=== PATIENT | male | born 1930 | race Caucasian/White ===

== ENCOUNTER 2018-02-19 13:12 | Emergency (ER) | payer MEDICARE ==
[~2018-02-19] VITALS: Ht 180.3 cm; Wt 85.0 kg
[~2018-02-19 13:12] MED LIST: ACET325 PO; AVOD0.5C PO; BISA10SU8 PR; CARV6.252 PO; CIPR250T2 PO; CLOP75 PO; ENAL10TA7 PO; LORTA5 PO; MAGN400 PO; MILK2400 PO; MULT-65 PO; SERT50 PO; VITA400C58 PO; VITA500S3 PO; VITA500T83 PO; Z.0.COMMODE-3:1; Z.0.CPM; Z.0.WALKERFRONT
[2018-02-19 13:34] VITALS: BP 161/70; PULSE 60; RESP 18; TEMP 98.1; O2SAT 98
[2018-02-19] MEDS ORDERED: SERT-132 PO (13:34)
[2018-02-19] MEDS ORDERED: TRIA1CAP6 PO (13:34)
[2018-02-19] MEDS ORDERED: LORA0.5T PO (13:34)
[2018-02-19] MEDS ORDERED: LISI10TA3 PO (13:34)
--- NOTE | 2018-02-19 13:37 | PD ---
HPI Chief Complaint: Bleeding Time Seen by Provider: 13:29 Travel History International Travel<30 days: No Contact w/Intl Traveler<30days: No Traveled to known affect area: No History of Present Illness HPI 87-year-old male patient from [facility], presents to the ER today brought in by EMS because staff saw blood in his diaper and on his penis today. He admits he has been having some lower abdominal discomfort, and has burning on urination. He denies any fevers, vomiting, chest discomfort, or any other issues. He denies any trauma to the area. Modifying Factors: None Associated Signs & Symptoms: Blood in the urine, lower abdominal discomfort and dysuria Risk Factors: Elderly PFSH Past Medical History Heart Rhythm Problems: No Cancer: Yes (SKIN) Cardiac Catheterization: No Cardiovascular Problems: Yes (CAROTID ARTERIAL SURGERY, STENT X 3) High Cholesterol: Yes Congestive Heart Failure: No Diabetes: No Endocrine: No Genitourinary: Yes (INCONTINENT) Hepatitis: No Hiatal Hernia: No Hypertension: Yes Immune Disorder: No Musculoskeletal: Yes (ARTHRITIS) Neurologic: No Psychiatric: Yes (DEPRESSION) Respiratory: No Thyroid Disease: No Past Surgical History Body Medical Devices: CARDIAC STENTS Cardiac Surgery: Yes (LT NECK CAROTID, STENTS X 3) Coronary Artery Bypass Graft: No Other Surgery: Yes Family History Family Myocardial Infarction: Yes (FATHER HAD [place] AT 80) Social History Alcohol Use: No Tobacco Use: No Substance Use: No Allergies-Medications (Allergen,Severity, Reaction): Coded Allergies: simvastatin (Verified Allergy, Intermediate, UNKNOWN, 02/19/18) Reported Meds & Prescriptions Reported Meds & Active Scripts Active Reported Lorazepam 0.5 Mg Tab 0.5 Mg PO DAILY PRN Dyrenium (Triamterene) 50 Mg Cap 25 Mg PO DAILY Sertraline (Sertraline HCl) 50 Mg Tab 50 Mg PO DAILY Lisinopril 10 Mg Tab 10 Mg PO DAILY Review of Systems Except as stated in HPI: all other systems reviewed are Neg Physical Exam Narrative GENERAL: Well-developed elderly male patient currently and mild distress. Awake , oriented 3. SKIN: Focused skin assessment warm/dry. HEAD: Atraumatic. Normocephalic. EYES: Pupils equal and round. No scleral icterus. No injection or drainage. ENT: No nasal bleeding or discharge. Mucous membranes pink and moist. NECK: Trachea midline. No JVD. CARDIOVASCULAR: Regular rate and rhythm. No murmur appreciated. RESPIRATORY: No accessory muscle use. Clear to auscultation. Breath sounds equal bilaterally. GASTROINTESTINAL: Abdomen soft, mild suprapubic tenderness without guarding or rebound, nondistended. Hepatic and splenic margins not palpable. MUSCULOSKELETAL: No obvious deformities. No clubbing. No cyanosis. No edema. NEUROLOGICAL: Awake and alert. No obvious cranial nerve deficits. Motor grossly within normal limits. Stuttering speech. PSYCHIATRIC: Appropriate mood and affect; insight and judgment normal. Data Data Last Documented VS Vital Signs Date Time Temp Pulse Resp B/P (MAP) Pulse Ox O2 Delivery O2 Flow Rate FiO2 02/19/18 13:34 98.1 60 18 161/70 (100) 98 Room Air Orders Orders Electrocardiogram (02/19/18 13:29) Complete Blood Count With Diff (02/19/18 13:29) Basic Metabolic Panel (Bmp) (02/19/18 13:29) Prothrombin Time / Inr (Pt) (02/19/18 13:29) Act Partial Throm Time (Ptt) (02/19/18 13:29) Blood Culture (02/19/18 13:29) Urinalysis - C+S If Indicated (02/19/18 13:29) Urinary Catheter Insert/Apply (02/19/18 13:29) Urine Culture (02/19/18 14:00) Piperacil-Tazo 4.5 Gm Premix (Zosyn 4.5 (02/19/18 15:49) Labs Laboratory Tests Test 02/19/18 14:00 02/19/18 14:12 Urine Color YELLOW Urine Turbidity HAZY Urine pH 8.0 Urine Specific [place] 1.016 Urine Protein 30 mg/dL Urine Glucose (UA) NEG mg/dL Urine Ketones NEG mg/dL Urine Occult Blood MOD Urine Nitrite POS Urine Bilirubin NEG Urine Urobilinogen LESS THAN 2.0 MG/DL Urine Leukocyte Esterase LARGE Urine RBC /hpf Urine WBC /hpf Urine Bacteria FEW /hpf Urine Hyaline Casts 4 /lpf Microscopic Urinalysis Comment CULTURE INDICATED White Blood Count 9.4 TH/MM3 Red Blood Count 4.29 MIL/MM3 Hemoglobin 13.0 GM/DL Hematocrit 39.1 % Mean Corpuscular Volume 91.3 FL Mean Corpuscular Hemoglobin 30.4 PG Mean Corpuscular Hemoglobin Concent 33.3 % Red Cell Distribution Width 13.7 % Platelet Count 160 TH/MM3 Mean Platelet Volume 8.2 FL Neutrophils (%) (Auto) 76.5 % Lymphocytes (%) (Auto) 12.9 % Monocytes (%) (Auto) 7.2 % Eosinophils (%) (Auto) 3.0 % Basophils (%) (Auto) 0.4 % Neutrophils # (Auto) 7.2 TH/MM3 Lymphocytes # (Auto) 1.2 TH/MM3 Monocytes # (Auto) 0.7 TH/MM3 Eosinophils # (Auto) 0.3 TH/MM3 Basophils # (Auto) 0.0 TH/MM3 CBC Comment DIFF FINAL Differential Comment Prothrombin Time 10.3 SEC Prothromb Time International Ratio 1.0 RATIO Activated Partial Thromboplast Time 26.8 SEC Blood Urea Nitrogen 28 MG/DL Creatinine 1.45 MG/DL Random Glucose 96 MG/DL Calcium Level 9.6 MG/DL Sodium Level 141 MEQ/L Potassium Level 5.3 MEQ/L Chloride Level 110 MEQ/L Carbon Dioxide Level 24.3 MEQ/L Anion Gap 7 MEQ/L Estimat Glomerular Filtration Rate 46 ML/MIN [facility] Medical Decision Making Medical Screen Exam Complete: Yes Emergency Medical Condition: Yes Medical Record Reviewed: Yes Interpretation(s) Laboratory Tests Test 02/19/18 14:00 02/19/18 14:12 Urine Turbidity HAZY (CLEAR) Urine Protein 30 mg/dL (NEG-TRACE) Urine Occult Blood MOD (NEG) Urine Nitrite POS (NEG) Urine Leukocyte Esterase LARGE (NEG) Urine Bacteria FEW /hpf (NONE) Red Blood Count 4.29 MIL/MM3 (4.50-5.90) Neutrophils (%) (Auto) 76.5 % (16.0-70.0) Blood Urea Nitrogen 28 MG/DL (7-18) Creatinine 1.45 MG/DL (0.60-1.30) Potassium Level 5.3 MEQ/L (3.5-5.1) Chloride Level 110 MEQ/L (98-107) Estimat Glomerular Filtration Rate 46 ML/MIN (>89) Differential Diagnosis Hematuria: UTI versus hemorrhagic cystitis versus coagulopathy versus trauma Narrative Course Lab work shows UTI which is likely causing his hematuria. IV antibiotics were initiated after cultures were drawn. Vital signs are stable in the ER. At this point, I have discussed findings with him and his and I have offered to admit him as an observation versus have him released with p.o. antibiotics and follow-up to primary care doctor. Patient and his state that they do not want him to stay and wanted to come back to the facility. We will give him p.o. antibiotics. He should follow-up closely with primary care doctor. Return for any worsening of bleeding, or new issues as needed. The plan has been discussed with him and he states understanding. Diagnosis Primary Impression: UTI (urinary tract infection) Med/Other Pt SpecificInfo: Prescription(s) given Scripts Sulfamethoxazole-Trimethoprim (Bactrim DS) 800-160 Mg Tab 1 TAB PO BID for Infection, #14 TAB 0 Refills Prov: Edna Omer MD 02/19/18 Disposition: 01 DISCHARGE HOME Condition: Stable Edna Omer MD Feb 19, 2018 13:37
[2018-02-19 15:10] LABS: AUTOMATED NEUTROPHIL # 7.2 TH/MM3 (1.8-7.7); BASOPHIL % 0.4 % (0.0-2.0); EOSINOPHIL # 0.3 TH/MM3 (0-0.4); HEMATOCRIT 39.1 % (39.0-51.0); LYMPH % 12.9 % (9.0-44.0); LYMPHOCYTE # 1.2 TH/MM3 (1.0-4.8); MEAN CELL VOLUME 91.3 FL (80.0-100.0); MEAN CORPUSCULAR HEMOGLOBIN 30.4 PG (27.0-34.0); MEAN CORPUSCULAR HGB CONC 33.3 % (32.0-36.0); MEAN PLATELET VOLUME 8.2 FL (7.0-11.0); MONO % 7.2 % (0.0-8.0); MONOCYTE # 0.7 TH/MM3 (0-0.9); NEUT % 76.5 % (16.0-70.0); PLATELET COUNT 160 TH/MM3 (150-450); RED BLOOD COUNT 4.29 MIL/MM3 (4.50-5.90); RED CELL DISTRIBUTION WIDTH 13.7 % (11.6-17.2); WHITE BLOOD COUNT 9.4 TH/MM3 (4.0-11.0)
[2018-02-19 15:20] LABS: BACTERIA, URINE FEW /hpf; BILIRUBIN, URINE NEG (NEG); BLOOD, URINE MOD (NEG); GLUCOSE,URINE NEG (NEG); HYALINE CAST, URINE 4 /lpf (RARE); KETONE, URINE NEG (NEG); NITRITE,URINE POS (NEG); URINE COLOR YELLOW (YELLW/STRAW); URINE LEUKOCYTE ESTERASE LARGE (NEG)
[2018-02-19 15:26] LABS: PROTHROMBIN TIME - PATIENT 10.3 SEC (9.8-11.6)
[2018-02-19 15:41] LABS: BICARBONATE 24.3 MEQ/L (21.0-32.0); CALCIUM 9.6 MG/DL (8.5-10.1); CREATININE 1.45 MG/DL (0.60-1.30)
[2018-02-19] MEDS ORDERED: PIPERACIL-TAZO 4.5 GM PREMIX 100 ML IV STA (15:49)
[2018-02-19] MEDS ORDERED: BACT800T5 PO (16:10)
[2018-02-19 17:00] VITALS: BP 132/76; TEMP 97.8
--- NOTE | 2018-02-21 00:30 | EKG ---
Date Performed: 02/19/2018 Time Performed: 13:56:32 PTAGE: 87 years EKG: Sinus rhythm ELECTRICAL INTERFERENCES INTRAVENTRICULAR CONDUCTION DELAY POSSIBLE RIGHT VENTRICULAR HYPERTROPHY AB NORMAL ECG PREVIOUS TRACING : 01/05/2014 06.15 DOCTOR: Fay Jean Interpretating Date/Time 02/21/2018 00:16:26
== END 2018-02-19 17:00 | disposition home or self-care (01) ==
LOC: NEPE 13:12
DX: N39.0 Urinary tract infection, site not specified (principal); B96.4 Proteus (mirabilis) (morganii) as the cause of diseases classified elsewhere; I51.7 Cardiomegaly; R94.31 Abnormal electrocardiogram [ECG] [EKG]; E78.00 Pure hypercholesterolemia, unspecified; I10 Essential (primary) hypertension; M19.90 Unspecified osteoarthritis, unspecified site; F32.9 Major depressive disorder, single episode, unspecified; Z79.899 Other long term (current) drug therapy
CPT/HCPCS: 51702; 80048; 81001; 85025; 85610; 85730; 87040; 87077; 87086; 87186; 93005; 96365; 99284; J2543

== ENCOUNTER 2018-02-22 06:04 | Observation (INO) | payer MEDICARE ==
[~2018-02-22] VITALS: Ht 177.8 cm; Wt 95.9 kg
[2018-02-22] VITALS (10 sets, daily range): BP systolic 112–172; BP diastolic 56–72; PULSE 50–88; RESP 16–20; TEMP 97.8–98.8; O2SAT 94–100
[~2018-02-22 06:04] MED LIST changes: -ACET325 PO; -AVOD0.5C PO; +BACT800T5 PO; -BISA10SU8 PR; -CARV6.252 PO; -CIPR250T2 PO; -CLOP75 PO; -ENAL10TA7 PO; +LISI10TA3 PO; +LORA0.5T PO; -LORTA5 PO; -MAGN400 PO; -MILK2400 PO; -MULT-65 PO; +SERT-132 PO; -SERT50 PO; +TRIA1CAP6 PO; -VITA400C58 PO; -VITA500S3 PO; -VITA500T83 PO; -Z.0.COMMODE-3:1; -Z.0.CPM; -Z.0.WALKERFRONT
[2018-02-22] MEDS ORDERED: SODIUM CHLOR 0.9% 1000 ML INJ 1,000 ML IV ONE (06:40)
--- NOTE | 2018-02-22 06:44 | PD ---
HPI Chief Complaint: Altered Mental Status Time Seen by Provider: 06:40 Travel History International Travel<30 days: No Contact w/Intl Traveler<30days: No Traveled to known affect area: No History of Present Illness HPI The patient is an 87 year old male who presents to the [facility] emergency department with a history of generalized weakness that reportedly began last night at around 2100 according to ambulance services. The patient had increased confusion this morning upon awakening, thus his called 911. The patient's is not available for further history at this time. The patient was noted by ambulance services upon their arrival this morning to be confused, having difficulty answering questions. The patient had no obvious focal neurologic findings noted prior to arrival. The patient in route to this facility had improvement of his mentation and on evaluation by the nursing staff for intake was noted to be alert and oriented 3. The patient was noted to have a droop of his left eyelid, but with an equal smile. It is unknown whether the patient has a history of left eyelid ptosis. The patient denies being on any blood thinners. He is unsure whether he takes any aspirin. The patient reports that he was recently in the emergency department and diagnosed with a urinary tract infection. Ambulance services reported that the family reported that the patient was seen in the emergency department on Tuesday and diagnosed with a urinary tract infection. The patient has been on antibiotics since then for approximately 2-1/2 days. On my arrival to the room, the patient is noted to have waxing and waning difficulties with finding words and at times when answering questions would say random words not pertaining to the subject. PFSH Past Medical History Narrative Medical The patient's past medical history is significant for carotid occlusion with carotid arterial surgery, history of hyperlipidemia, hypertension, arthritis, depression Heart Rhythm Problems: No Cancer: Yes (SKIN) Cardiac Catheterization: No Cardiovascular Problems: Yes (CAROTID ARTERIAL SURGERY, STENT X 3) High Cholesterol: Yes Congestive Heart Failure: No Diabetes: No Endocrine: No Genitourinary: Yes (INCONTINENT) Hepatitis: No Hiatal Hernia: No Hypertension: Yes Immune Disorder: No Musculoskeletal: Yes (ARTHRITIS) Neurologic: No Psychiatric: Yes (DEPRESSION) Respiratory: No Thyroid Disease: No Past Surgical History Narrative Surgical The patient's past surgical history is significant for cardiac catheterization with stent placement, carotid artery surgery. Body Medical Devices: CARDIAC STENTS Cardiac Surgery: Yes (LT NECK CAROTID, STENTS X 3) Coronary Artery Bypass Graft: No Other Surgery: Yes Family History Family Myocardial Infarction: Yes (FATHER HAD [place] AT 80) Social History Alcohol Use: No Tobacco Use: No Substance Use: No Allergies-Medications (Allergen,Severity, Reaction): Coded Allergies: simvastatin (Verified Allergy, Intermediate, UNKNOWN, 02/19/18) Reported Meds & Prescriptions Reported Meds & Active Scripts Active Bactrim DS (Sulfamethoxazole-Trimethoprim) 800-160 Mg Tab 1 Tab PO BID Reported Lorazepam 0.5 Mg Tab 0.5 Mg PO DAILY PRN Dyrenium (Triamterene) 50 Mg Cap 25 Mg PO DAILY Sertraline (Sertraline HCl) 50 Mg Tab 50 Mg PO DAILY Lisinopril 10 Mg Tab 10 Mg PO DAILY Review of Systems Except as stated in HPI: all other systems reviewed are Neg General / Constitutional: No: Fever Eyes: No: Visual changes HENT: No: Headaches Cardiovascular: No: Chest Pain or Discomfort Respiratory: No: Shortness of Breath Gastrointestinal: No: Abdominal Pain Genitourinary: No: Dysuria Musculoskeletal: No: Pain Skin: No Rash Neurologic: Positive: Change in Mentation, Other (Left eyelid ptosis, expressive aphasia), No: Weakness, Focal Abnormalities, Slurred Speech, Sensory Disturbance Psychiatric: No: Depression Endocrine: No: Polydipsia Hematologic/Lymphatic: No: Easy Bruising Physical Exam Narrative General: The patient is a well-developed well-nourished male in no acute distress. Head and Neck exam: Head is normocephalic atraumatic. Eyes: EOMI, pupils are equal round and reactive to light. Nose: Midline septum with pink mucous membranes Mouth: Dentition unremarkable. Moist mucus membranes. Posterior oropharynx is not erythematous. No tonsillar hypertrophy. Uvula midline. Airway patent. Neck: No palpable lymphadenopathy. No nuchal rigidity. No thyromegaly. Cardiovascular: Regular rate and rhythm without murmurs, gallops, or rubs. No pulse deficit to the extremities on simultaneous auscultation and palpation of his radial artery. Lungs: Clear to auscultation bilaterally. No wheezes, rhonchi, or rales. Abdomen: Soft, without tenderness to palpation in all 4 quadrants of the abdomen. No guarding, rebound, or rigidity. Normal bowel sounds are audible. No tenderness on palpation of McBurney's point. Extremities: No clubbing or cyanosis. The patient has 1+ pitting edema bilateral lower extremities. 2+ pulses in all 4 extremities. Back: No costovertebral angle tenderness to palpation. Neurologic Exam: The patient has equal facial movement on smiling, however he is noted to have a left eyelid ptosis which I am unsure of whether he has a history of. The patient has strength at 5/5 in all 4 extremities, intact sensation over all dermatomes. The patient has waxing and waning ability to speak. When answering questions at times he is able to answer the question that is asked, at other times he is confused and is slow to speak. When he does speak he will say random words instead of what he seems to intend. The patient has difficulty naming various objects around the room. No loss of visual zuleta. Skin Exam: No rash noted. Intact skin that is warm and dry. Data Data Last Documented VS Vital Signs Date Time Temp Pulse Resp B/P (MAP) Pulse Ox O2 Delivery O2 Flow Rate FiO2 02/22/18 07:14 61 16 158/72 (100) 100 Nasal Cannula 2.00 02/22/18 06:10 98.8 Orders Orders Diet Npo (02/22/18 Breakfast) Activity Bed Rest (02/22/18 ) Electrocardiogram (02/22/18 ) I-Stat Profile (02/22/18 06:40) Prothrombin Time / Inr (Pt) (02/22/18 06:40) Act Partial Throm Time (Ptt) (02/22/18 06:40) Complete Blood Count With Diff (02/22/18 06:40) Fibrinogen (02/22/18 06:40) Creatine Kinase (Cpk) (02/22/18 06:40) Troponin I (02/22/18 06:40) Ua Includes Microscopic (02/22/18 06:40) Drug Screen, Random Urine (02/22/18 06:40) Type And Screen (02/22/18 06:40) Ct Brain W/O Iv Contrast(Rout) (02/22/18 ) Chest, Single Ap (02/22/18 ) Cta Brain W Iv Contrast W 3d (02/22/18 06:40) Cta Neck W Iv Contrast W 3d (02/22/18 06:40) Consult Neurology (02/22/18 ) Blood Glucose (02/22/18 06:40) Ecg Monitoring (02/22/18 06:40) Neuro Checks Q2HX12,Q4H (02/22/18 06:40) Nursing Bedside Swallow Assess .ONCE (02/22/18 06:40) Iv Access Insert/Monitor (02/22/18 06:40) NPO (02/22/18 06:40) Oximetry (02/22/18 06:40) Resp Oxygen Nc Stroke (02/22/18 ) Sodium Chlor 0.9% 1000 Ml Inj (Ns 1000 M (02/22/18 06:40) Cath For Specimen (02/22/18 06:40) (Hub Use Only)Inp Phy Cons/Ref (02/22/18 ) Mra Carotids W Contrast (02/22/18 ) Cath For Specimen (02/22/18 07:18) Mri Brain W/O Contrast (02/22/18 ) Ceftriaxone Inj (Rocephin Inj) (02/22/18 08:15) Blood Culture (02/22/18 08:14) Mra Brain W/O Contrast (Cow) (02/22/18 ) Labs Laboratory Tests Test 02/22/18 06:40 02/22/18 07:20 02/22/18 07:30 White Blood Count 9.0 TH/MM3 Red Blood Count 3.95 MIL/MM3 Hemoglobin 12.0 GM/DL Bedside Hemoglobin 10.9 G/DL Hematocrit 35.7 % Bedside Hematocrit 32.0 % Mean Corpuscular Volume 90.4 FL Mean Corpuscular Hemoglobin 30.4 PG Mean Corpuscular Hemoglobin Concent 33.6 % Red Cell Distribution Width 13.2 % Platelet Count 178 TH/MM3 Mean Platelet Volume 9.4 FL Neutrophils (%) (Auto) 75.9 % Lymphocytes (%) (Auto) 11.9 % Monocytes (%) (Auto) 7.1 % Eosinophils (%) (Auto) 4.6 % Basophils (%) (Auto) 0.5 % Neutrophils # (Auto) 6.8 TH/MM3 Lymphocytes # (Auto) 1.1 TH/MM3 Monocytes # (Auto) 0.6 TH/MM3 Eosinophils # (Auto) 0.4 TH/MM3 Basophils # (Auto) 0.0 TH/MM3 CBC Comment DIFF FINAL Differential Comment Bedside Sodium 137 MMOL/L Bedside Potassium 4.0 MMOL/L Bedside Chloride 107 MMOL/L Bedside Blood Urea Nitrogen 37 MG/DL Bedside Creatinine 2.1 MG/DL Bedside Glucose 87 MG/DL Total Creatine Kinase 82 U/L Troponin I LESS THAN 0.02 NG/ML Prothrombin Time 9.8 SEC Prothromb Time International Ratio 1.0 RATIO Activated Partial Thromboplast Time 25.2 SEC Fibrinogen 582 mg/dL Urine Color LIGHT-YELLOW Urine Turbidity CLEAR Urine pH 6.0 Urine Specific [place] 1.014 Urine Protein TRACE mg/dL Urine Glucose (UA) NEG mg/dL Urine Ketones NEG mg/dL Urine Occult Blood TRACE Urine Nitrite NEG Urine Bilirubin NEG Urine Urobilinogen LESS THAN 2.0 MG/DL Urine Leukocyte Esterase LARGE Urine RBC 4 /hpf Urine WBC 41 /hpf Urine Bacteria RARE /hpf Urine Hyaline Casts 1 /lpf Urine Mucus FEW /lpf Urine Opiates Screen NEG Urine Barbiturates Screen NEG Urine Amphetamines Screen NEG Urine Benzodiazepines Screen NEG Urine Cocaine Screen NEG Urine Cannabinoids Screen NEG MDM Medical Decision Making Medical Screen Exam Complete: Yes Emergency Medical Condition: Yes Medical Record Reviewed: Yes Differential Diagnosis Ischemic stroke, versus hemorrhagic stroke, versus intracranial mass, versus encephalopathy, versus delirium Narrative Course During the course of the patient's emergency department visit, the patient's history, examination, and differential diagnosis were reviewed with the patient. The patient was placed on a cardiac technologist with oximetry and frequent blood pressure monitoring. The patient had IV access obtained and blood work sent for analysis. The patient had a EKG on arrival that shows a sinus bradycardia, heart rate of 59, QRS duration is 130 ms, QTC [address] segment elevation is noted. T waves are inverted in lead III, V1. A stroke alert was called on this patient has no other family members are available at the bedside and the patient appears to have an expressive aphasia. The stroke alert was called at 6:38 AM. I spoke to Dr. Hathaway the neurologist quality control analyst at 6: 42 AM. She recommends further evaluation and discussion with the patient's family as the patient's symptoms may have been present even last night given the reported weakness since 9 PM last night. The patient was initially provided normal saline at 70 mL/h. The patient's head of the bed was placed flat. The patient's initial systolic blood pressure was in the 170s. The patient's laboratory studies were reviewed and remarkable for a white count of 9, hemoglobin 12, platelets 178 with 75.9 neutrophils, 4.6 eosinophils, i- STAT with creatinine revealed a BUN of 37, creatinine 2.1, glucose 87, Radiology studies were reviewed and remarkable for a CT scan of the brain that showed cerebral atrophy, no acute intracranial abnormality. A call was then placed out again to the neurologist, Dr. Hathaway to update her regarding the negative CT brain noncontrast. Unfortunately, the patient's family is not present to provide additional history and due to the vagueness of the patient's symptoms that have were reportedly been waxing and waning sinus last night, Dr. Hathaway agreed that the patient does not appear to meet criteria for TPA administration. The patient will be given aspirin. The patient's coagulation profile, urinalysis by in and out catheterization, and MRIs requested by the neurologist are pending at the conclusion of my shift. The patient's case was checked out to Dr. Hernandez for final evaluation and disposition. I anticipate that the patient will be admitted to the hospital. Critical Care Narrative Aggregate critical care time was 33 minutes. Time to perform other separately billable procedures was not included in the critical care time. My time did not include minutes spent treating any other patients simultaneously or on activities that did not directly contribute to the patient's treatment. The services I provided to this patient were to treat and/or prevent clinically significant deterioration that could result in: Progression of neurologic disability, versus sepsis, versus respiratory failure I provided critical care services requiring my management, as noted below: Chart data review, documentation time, medication orders and management, vital sign assessments/reviewing monitor data, ordering and reviewing lab tests, ordering and interpreting/reviewing x-rays and diagnostic studies, care of the patient and discussion of the patient with the admitting physicians. Physician Communication Physician Communication The patient's case including history, pertinent physical examination findings, and laboratory studies were discussed with Dr. Hathaway and Dr. Duvall. Diagnosis Primary Impression: Expressive aphasia Additional Impression: Altered mental status Qualified Codes: R41.0 - Disorientation, unspecified Admitting Information Admitting Physician Requests: Admit Mikala Christensen MD Feb 22, 2018 06:44
--- NOTE | 2018-02-22 06:55 | RADRPT ---
EXAM DATE/TIME: 02/22/2018 06:46 [facility] COMPARISON: No previous studies available for comparison. INDICATIONS : Stroke alert, left side facial droop and expressive aphasia. RADIATION DOSE: 38.55 CTDIvol (mGy) This report was called by Jessika to Fermin at 6: 52am MEDICAL HISTORY : Non-responsive. SURGICAL HISTORY : Non-responsive. ENCOUNTER: Initial ACUITY: 1 day PAIN SCALE: Non-responsive LOCATION: cranial TECHNIQUE: Multiple contiguous axial images were obtained of the head. Using automated exposure control and adj ustment of the mA and/or kV according to patient size, radiation dose was kept as low as reasonably a chievable to obtain optimal diagnostic quality images. DICOM format image data is available electro nically for review and comparison. FINDINGS: CEREBRUM: The ventricles are prominent consistent with atrophy. No evidence of midline shift, mass lesion, hem orrhage or acute infarction. No extra-axial fluid collections are seen. POSTERIOR FOSSA: The cerebellum and brainstem are intact. The 4th ventricle is midline. The cerebellopontine angle i s unremarkable. EXTRACRANIAL: The visualized portion of the orbits is intact. SKULL: The calvaria is intact. No evidence of skull fracture. CONCLUSION: 1. Cerebral atrophy. 2. No acute intracranial abnormality Miguel A Rosen MD on February 22, 2018 at 6:51 Board Certified Radiologist. This report was verified electronically.
[2018-02-22 07:04] LABS: AUTOMATED NEUTROPHIL # 6.8 TH/MM3 (1.8-7.7); BASOPHIL % 0.5 % (0.0-2.0); EOSINOPHIL # 0.4 TH/MM3 (0-0.4); EOSINOPHIL % 4.6 % (0.0-4.0); HEMATOCRIT 35.7 % (39.0-51.0); LYMPH % 11.9 % (9.0-44.0); LYMPHOCYTE # 1.1 TH/MM3 (1.0-4.8); MEAN CELL VOLUME 90.4 FL (80.0-100.0); MEAN CORPUSCULAR HEMOGLOBIN 30.4 PG (27.0-34.0); MEAN CORPUSCULAR HGB CONC 33.6 % (32.0-36.0); MEAN PLATELET VOLUME 9.4 FL (7.0-11.0); MONO % 7.1 % (0.0-8.0); MONOCYTE # 0.6 TH/MM3 (0-0.9); NEUT % 75.9 % (16.0-70.0); PLATELET COUNT 178 TH/MM3 (150-450); RED BLOOD COUNT 3.95 MIL/MM3 (4.50-5.90); RED CELL DISTRIBUTION WIDTH 13.2 % (11.6-17.2)
--- NOTE | 2018-02-22 07:12 | RADRPT ---
EXAM DATE/TIME: 02/22/2018 06:59 CORRECTION Corrected on: February 27, 2018; Added Pain Score [facility] COMPARISON: No previous studies available for comparison. INDICATIONS : Stroke alert. MEDICAL HISTORY : Hypertension. Hypercholesterolemia. Arthritis. SURGICAL HISTORY : Left carotid stents. Left shoulder. ENCOUNTER: Initial ACUITY: 1 day PAIN SCORE: 0/10 LOCATION: chest FINDINGS: A single view of the chest demonstrates the lungs to be symmetrically aerated without evidence of mas s, infiltrate or effusion. Minimal basal atelectasis. The cardiomediastinal contours are unremarkable . Osseous structures are intact. CONCLUSION: 1. No acute findings. Minimal basal atelectasis. Ti Kumar MD on February 22, 2018 at 7:10 Board Certified Radiologist. This report was verified electronically.
--- NOTE | 2018-02-22 07:19 | PD ---
Physical Exam Date Seen by Provider: Feb 22, 2018 Time Seen by Provider: 08:19 Narrative 87-year-old male came to the emergency room with history of confusion and speech issue. He was seen by the previous ER physician. Please refer to her history and physical for further details. Patient was also seen in this emergency room couple days ago for UTI and was discharged home on Bactrim. Urine is growing Proteus. Vital signs are stable. Please see a physician called initially a stroke alert but the time of onset of his symptoms are unclear. Patient woke up with the symptoms. She discussed the case with the neurologist Dr. Hathaway and the decision is not to give the TPA at this time. As per the previous ER physician the symptoms have been waxing and waning and could be delirium. Sign out was to follow-up on the UA and MRI. Plain CT of the head was negative for any bleed. UA suggestive of UTI. I've given him IV Rocephin and ordered blood culture. Awaiting for the MRI to be done and resulted. I would like to admit the patient at this point. Awaiting for the hospitalist to call back. Data Data Last Documented VS Vital Signs Date Time Temp Pulse Resp B/P (MAP) Pulse Ox O2 Delivery O2 Flow Rate FiO2 02/22/18 08:57 56 18 166/72 (103) 94 Nasal Cannula 2.00 Orders Orders Activity Bed Rest (02/22/18 ) Electrocardiogram (02/22/18 ) I-Stat Profile (02/22/18 06:40) Prothrombin Time / Inr (Pt) (02/22/18 06:40) Act Partial Throm Time (Ptt) (02/22/18 06:40) Complete Blood Count With Diff (02/22/18 06:40) Fibrinogen (02/22/18 06:40) Creatine Kinase (Cpk) (02/22/18 06:40) Troponin I (02/22/18 06:40) Ua Includes Microscopic (02/22/18 06:40) Drug Screen, Random Urine (02/22/18 06:40) Type And Screen (02/22/18 06:40) Ct Brain W/O Iv Contrast(Rout) (02/22/18 ) Chest, Single Ap (02/22/18 ) Consult Neurology (02/22/18 ) Blood Glucose (02/22/18 06:40) Ecg Monitoring (02/22/18 06:40) Neuro Checks Q2HX12,Q4H (02/22/18 06:40) Nursing Bedside Swallow Assess .ONCE (02/22/18 06:40) Iv Access Insert/Monitor (02/22/18 06:40) NPO (02/22/18 06:40) Oximetry (02/22/18 06:40) Resp Oxygen Nc Stroke (02/22/18 ) Sodium Chlor 0.9% 1000 Ml Inj (Ns 1000 M (02/22/18 06:40) Cath For Specimen (02/22/18 06:40) (Hub Use Only)Inp Phy Cons/Ref (02/22/18 ) Mra Carotids W Contrast (02/22/18 ) Cath For Specimen (02/22/18 07:18) Mri Brain W/O Contrast (02/22/18 ) Ceftriaxone Inj (Rocephin Inj) (02/22/18 08:15) Blood Culture (02/22/18 08:14) Mra Brain W/O Contrast (Cow) (02/22/18 ) Aspirin (Aspirin) (02/22/18 08:45) Gadodiamide Pf Inj (Omniscan Pf Inj) (02/22/18 08:35) Gadodiamide Pf Inj (Omniscan Pf Inj) (02/22/18 08:55) Admit Order (Ed Use Only) (02/22/18 09:20) Labs Laboratory Tests Test 02/22/18 06:40 02/22/18 07:20 02/22/18 07:30 White Blood Count 9.0 TH/MM3 Red Blood Count 3.95 MIL/MM3 Hemoglobin 12.0 GM/DL Bedside Hemoglobin 10.9 G/DL Hematocrit 35.7 % Bedside Hematocrit 32.0 % Mean Corpuscular Volume 90.4 FL Mean Corpuscular Hemoglobin 30.4 PG Mean Corpuscular Hemoglobin Concent 33.6 % Red Cell Distribution Width 13.2 % Platelet Count 178 TH/MM3 Mean Platelet Volume 9.4 FL Neutrophils (%) (Auto) 75.9 % Lymphocytes (%) (Auto) 11.9 % Monocytes (%) (Auto) 7.1 % Eosinophils (%) (Auto) 4.6 % Basophils (%) (Auto) 0.5 % Neutrophils # (Auto) 6.8 TH/MM3 Lymphocytes # (Auto) 1.1 TH/MM3 Monocytes # (Auto) 0.6 TH/MM3 Eosinophils # (Auto) 0.4 TH/MM3 Basophils # (Auto) 0.0 TH/MM3 CBC Comment DIFF FINAL Differential Comment Bedside Sodium 137 MMOL/L Bedside Potassium 4.0 MMOL/L Bedside Chloride 107 MMOL/L Bedside Blood Urea Nitrogen 37 MG/DL Bedside Creatinine 2.1 MG/DL Bedside Glucose 87 MG/DL Total Creatine Kinase 82 U/L Troponin I LESS THAN 0.02 NG/ML Prothrombin Time 9.8 SEC Prothromb Time International Ratio 1.0 RATIO Activated Partial Thromboplast Time 25.2 SEC Fibrinogen 582 mg/dL Urine Color LIGHT-YELLOW Urine Turbidity CLEAR Urine pH 6.0 Urine Specific [place] 1.014 Urine Protein TRACE mg/dL Urine Glucose (UA) NEG mg/dL Urine Ketones NEG mg/dL Urine Occult Blood TRACE Urine Nitrite NEG Urine Bilirubin NEG Urine Urobilinogen LESS THAN 2.0 MG/DL Urine Leukocyte Esterase LARGE Urine RBC 4 /hpf Urine WBC 41 /hpf Urine Bacteria RARE /hpf Urine Hyaline Casts 1 /lpf Urine Mucus FEW /lpf Urine Opiates Screen NEG Urine Barbiturates Screen NEG Urine Amphetamines Screen NEG Urine Benzodiazepines Screen NEG Urine Cocaine Screen NEG Urine Cannabinoids Screen NEG MDM Supervised Visit with TIAGO: No Diagnosis Primary Impression: Expressive aphasia Additional Impressions: Altered mental status Renal insufficiency UTI (urinary tract infection) Qualified Codes: N39.0 - Urinary tract infection, site not specified Failure of outpatient treatment Admitting Information Admitting Physician Requests: Admit Scripts Lorazepam (Lorazepam) 0.5 Mg Tab 0.5 MG PO Q8H Y for ANXIETY, #20 TAB 0 Refills limit use of prn ativan to 14 days total Prov: Osman Hernadez DO 02/23/18 Get Hernandez MD Feb 22, 2018 07:19
[2018-02-22 07:24] LABS: TROPONIN I LESS THAN 0.02 NG/ML (0.02-0.05)
[2018-02-22 07:42] LABS: PROTHROMBIN TIME - PATIENT 9.8 SEC (9.8-11.6)
[2018-02-22 07:57] LABS: BACTERIA, URINE RARE /hpf; BILIRUBIN, URINE NEG (NEG); BLOOD, URINE TRACE (NEG); GLUCOSE,URINE NEG (NEG); HYALINE CAST, URINE 1 /lpf (RARE); KETONE, URINE NEG (NEG); MUCUS URINE FEW /lpf (OCC); NITRITE,URINE NEG (NEG); URINE COLOR LIGHT-YELLOW (YELLW/STRAW); URINE LEUKOCYTE ESTERASE LARGE (NEG)
[2018-02-22] MEDS ORDERED: cefTRIAXone INJ 1,000 MG in SODIUM CHLORIDE 0.9% INJ 100 ML IV ONE (08:15)
[2018-02-22] MEDS ORDERED: GADODIAMIDE PF 287 MG/ML 20 ML VIAL (for RAD MRI) IVCONTRAST ONE ×2 (08:35→08:55)
--- NOTE | 2018-02-22 08:37 | RADRPT ---
EXAM DATE/TIME: 02/22/2018 08:03 [facility] COMPARISON: No previous studies available for comparison. INDICATIONS : Aphasia. Stroke alert. MEDICAL HISTORY : Hypertension. SURGICAL HISTORY : Total knee replacement, right. Carotid endarterectomy. ENCOUNTER: Subsequent ACUITY: 1 day PAIN SCORE: 0/10 LOCATION: head. Please note a normal MRA of the brain does not entirely exclude the possibility of a small aneurysm, nor the possibility of distal intracranial vessel disease. TECHNIQUE: 3D time of flight MRA was performed. Source images, multiplanar STS MIP, and 3D volume MIP reconstru ctions were reviewed. FINDINGS: There is excellent visualization of the major intracranial arteries out to the second-order branch ve ssels. The patient has variant anatomy with persistent circulation bilaterally. Scattered ather osclerotic plaque observed. There are areas of moderate luminal narrowing involving the vertebral art eries bilaterally as well as scattered throughout the right M1 segment. The most significant stenosis is 50-60% involving the origin of the right M1 segment. No filling defects observed. There is no gregg dence for aneurysm or vascular malformation. CONCLUSION: No filling defect to suggest embolus or thrombus. Scattered atherosclerotic disease as detailed above . Rodriguez Lewis Jr., MD on February 22, 2018 at 8:32 Board Certified Radiologist. This report was verified electronically.
[2018-02-22] MEDS ORDERED: ASPIRIN 325 MG TAB PO ONE (08:45)
--- NOTE | 2018-02-22 08:55 | RADRPT ---
EXAM DATE/TIME: 02/22/2018 08:03 [facility] COMPARISON: CT BRAIN W/O CONTRAST, February 22, 2018, 6:46. INDICATIONS : Stroke alert. CONTRAST: 20 cc Omniscan (gadodiamide) IV MEDICAL HISTORY : Nonresponsive SURGICAL HISTORY : Nonresponsive ENCOUNTER: Initial ACUITY: 1 day PAIN SCORE: Nonresponsive LOCATION: Head TECHNIQUE: Multiplanar, multisequence MRI of the brain was performed without contrast. FINDINGS: CEREBRUM: The ventricles are normal for age. There is bilateral cortical atrophy. No evidence of midline shift , mass lesion, hemorrhage or acute infarction. No extraaxial fluid collections are seen. The pituit kaelyn gland and suprasellar cistern are normal in configuration. WHITE MATTER: No significant signal abnormalities are seen in the white matter. A few high signal spots are seen in the white matter tracks bilaterally characteristic of ischemic demyelinization. POSTERIOR FOSSA: The cerebellum and brainstem are intact. The 4th ventricle is midline. The cerebellopontine angle is unremarkable. The cerebellar tonsils are normal in position. DIFFUSION IMAGING: No focal areas of restricted diffusion are seen. No evidence of acute infarction. EXTRACRANIAL: The visualized portions of the orbits and paranasal sinuses are unremarkable. CONCLUSION: 1. Bilateral cortical atrophy and chronic white matter changes characteristic for patient's age. 2. No acute pathology. Bobby Hawley MD on February 22, 2018 at 8:50 Board Certified Radiologist. This report was verified electronically.
[2018-02-22] MEDS ORDERED: NALOXONE HCL 0.4 MG/ML AMP IV PUSH PRN (09:30)
[2018-02-22] MEDS ORDERED: ONDANSETRON HCL 4 MG/2 ML VIAL IVP PRN (09:30)
[2018-02-22] MEDS ORDERED: SODIUM CHLORIDE 0.9% FLUSH 10 ML FLUSH IV FLUSH PRN (09:30)
[2018-02-22] MEDS ORDERED: ACETAMINOPHEN 325 MG TAB PO PRN (09:30)
[2018-02-22] MEDS ORDERED: MAGNESIUM HYDROXIDE SUSP 30 ML CUP PO PRN (09:30)
[2018-02-22] MEDS ORDERED: LORazepam 0.5 MG TAB PO PRN (09:30)
[2018-02-22] MEDS ORDERED: NON-FORMULARY DRUG (Triamterene (Dyrenium) 25 MG) PO SCH (09:30)
--- NOTE | 2018-02-22 09:30 | RADRPT ---
EXAM DATE/TIME: 02/22/2018 08:03 [facility] COMPARISON: No previous studies available for comparison. INDICATIONS : Stroke alert. CONTRAST: 20 cc Omniscan (gadodiamide) IV MEDICAL HISTORY : Hypertension. SURGICAL HISTORY : Total knee replacement, right. Carotid endarterectomy. ENCOUNTER: Initial ACUITY: 1 day PAIN SCORE: 0/10 LOCATION: neck Percent stenosis is calculated using the diameter of the stenotic region over the diameter of the nor mal distal internal carotid artery. TECHNIQUE: Bolus infused MRA of the extracranial circulation was performed using a neurovascular coil. Post pro cessing was performed including rotating subvolume maximum intensity projections of each carotid kay ry, rotating full volume maximum intensity projections of both carotid arteries, sagittal and coronal sliding thin slab reformations of each carotid artery, and left oblique sliding thin slab reformatio n through the aortic arch to include the origin of the arch branch vessels. FINDINGS: AORTIC ARCH: There is a three vessel origin of the great vessels from the aorta. No evidence of ostial narrowing. There is tortuosity of all 3 arch vessels. RIGHT CAROTID: The common carotid artery is intact. The carotid bulb has this patient.. The internal carotid arter y lumen is patent with some mild narrowing at the origin of the right internal carotid artery.. The external carotid artery is intact. LEFT CAROTID: The common carotid artery is intact. The carotid bulb has a normal configuration without ulceration or narrowing. The internal carotid artery lumen is smooth without stenosis. The external carotid ar kanchan is intact. VERTEBRALS: The vertebral arteries have a symmetric diameter. No stenotic lesions are seen. CONCLUSION: 1. Mild narrowing at the origin of the right internal carotid artery. 2. Otherwise, no focal high-grade or significant stenosis is demonstrated. 3. There is tortuosity of all 3 arch vessels. Bobby Hawley MD on February 22, 2018 at 9:24 Board Certified Radiologist. This report was verified electronically.
--- NOTE | 2018-02-22 09:36 | HHI.HP ---
HPI Service [facility] Hospitalists Primary Care Physician Ochoa Guajardo D.O. Admission Diagnosis AMS with failed outpatient UTI treatment Chief Complaint: Confusion and weakness Travel History International Travel<30 Days: No Contact w/Intl Traveler <30 Da: No Traveled to Known Affected Are: No History of Present Illness This is an 87-year-old male with a past medical history which includes: carotid occlusion with carotid arterial surgery, history of hyperlipidemia, hypertension , arthritis, depression. Patient has dementia and is a poor historian therefore information was gathered from patient as well as prior charting. Patient presented to the ER with confusion and some expressive aphasia. Time of onset was really unclear. He was seen in the ER 02/19/18 dx with a UTI, started on Bactrim. Urine culture grew Proteus. The patient did not receive TPA because we did not really know the time of onset, since this was waxing and waning for unclear length of time. There was some report of generalized weakness, some confusion this morning upon awakening, trouble answering questions noted by the EVAC. Apparently, en route his mentation improved. He has a droopy left eye. He tells me that is chronic. He is blind in that eye. He is not on any blood thinners. Patient denies SOB, chest pain, N/V/D/C, fevers or chills. Review of Systems ROS Limitations: Poor Historian Past Family Social History Past Medical History carotid occlusion with carotid arterial surgery, history of hyperlipidemia, hypertension, arthritis, depression Past Surgical History cardiac catheterization with stent placement, carotid artery surgery Reported Medications Triamterene-Hydrochlorothiazide 37.5-25 Mg Cap 1 Cap PO DAILY Lorazepam 0.5 Mg Tab 0.5 Mg PO DAILY PRN Sertraline (Sertraline HCl) 50 Mg Tab 50 Mg PO DAILY Lisinopril 10 Mg Tab 10 Mg PO DAILY Allergies: Coded Allergies: simvastatin (Verified Allergy, Intermediate, UNKNOWN, 02/19/18) Family History Father had ND at 80 Social History Alcohol Use: No Tobacco Use: No Substance Use: No Physical Exam Vital Signs Vital Signs Date Time Temp Pulse Resp B/P (MAP) Pulse Ox O2 Delivery O2 Flow Rate FiO2 02/22/18 08:57 56 18 166/72 (103) 94 Nasal Cannula 2.00 02/22/18 07:14 61 16 158/72 (100) 100 Nasal Cannula 2.00 02/22/18 07:08 99 Room Air 02/22/18 06:44 99 Nasal Cannula 2.00 02/22/18 06:10 98.8 61 18 172/71 (104) 97 Physical Exam GENERAL: This is an elderly confused 87 year old male patient, no apparent distress. HEAD: Atraumatic. Normocephalic. No temporal or scalp tenderness. EYES: Extraocular motions intact. No scleral icterus. No injection or drainage. CARDIOVASCULAR: Regular rate and rhythm RESPIRATORY: Clear to auscultation. Breath sounds equal bilaterally. GASTROINTESTINAL: Abdomen soft, non-tender, nondistended. MUSCULOSKELETAL: Extremities without clubbing, cyanosis, or edema. No joint tenderness, effusion, or edema noted. No calf tenderness. Negative Homans sign bilaterally. NEUROLOGICAL: Awake and alert but confused. Oriented to person only. Motor and sensory grossly within normal limits. 4-5 out of 5 muscle strength in all muscle groups. Normal speech. Laboratory Laboratory Tests Test 02/22/18 06:40 02/22/18 07:20 02/22/18 07:30 White Blood Count 9.0 Red Blood Count 3.95 Hemoglobin 12.0 Bedside Hemoglobin 10.9 Hematocrit 35.7 Bedside Hematocrit 32.0 Mean Corpuscular Volume 90.4 Mean Corpuscular Hemoglobin 30.4 Mean Corpuscular Hemoglobin Concent 33.6 Red Cell Distribution Width 13.2 Platelet Count 178 Mean Platelet Volume 9.4 Neutrophils (%) (Auto) 75.9 Lymphocytes (%) (Auto) 11.9 Monocytes (%) (Auto) 7.1 Eosinophils (%) (Auto) 4.6 Basophils (%) (Auto) 0.5 Neutrophils # (Auto) 6.8 Lymphocytes # (Auto) 1.1 Monocytes # (Auto) 0.6 Eosinophils # (Auto) 0.4 Basophils # (Auto) 0.0 CBC Comment DIFF FINAL Differential Comment Bedside Sodium 137 Bedside Potassium 4.0 Bedside Chloride 107 Bedside Blood Urea Nitrogen 37 Bedside Creatinine 2.1 Bedside Glucose 87 Total Creatine Kinase 82 Troponin I LESS THAN 0.02 Prothrombin Time 9.8 Prothromb Time International Ratio 1.0 Activated Partial Thromboplast Time 25.2 Fibrinogen 582 Urine Color LIGHT-YELLOW Urine Turbidity CLEAR Urine pH 6.0 Urine Specific [place] 1.014 Urine Protein TRACE Urine Glucose (UA) NEG Urine Ketones NEG Urine Occult Blood TRACE Urine Nitrite NEG Urine Bilirubin NEG Urine Urobilinogen LESS THAN 2.0 Urine Leukocyte Esterase LARGE Urine RBC 4 Urine WBC 41 Urine Bacteria RARE Urine Hyaline Casts 1 Urine Mucus FEW Urine Opiates Screen NEG Urine Barbiturates Screen NEG Urine Amphetamines Screen NEG Urine Benzodiazepines Screen NEG Urine Cocaine Screen NEG Urine Cannabinoids Screen NEG Result Diagram: 02/22/18 0640 Imaging Last Impressions Neck Magnetic Resonance Angiography 02/22/18 0000 Signed Impressions: Service Date/Time: Thursday, February 22, 2018 08:03 - CONCLUSION: 1. Mild narrowing at the origin of the right internal carotid artery. 2. Otherwise, no focal high-grade or significant stenosis is demonstrated. 3. There is tortuosity of all 3 arch vessels. Bobby Hawley MD Head Magnetic Resonance Angiography 02/22/18 0000 Signed Impressions: Service Date/Time: Thursday, February 22, 2018 08:03 - CONCLUSION: No filling defect to suggest embolus or thrombus. Scattered atherosclerotic disease as detailed above. Rodriguez Lewis Jr., MD Head CT 02/22/18 0000 Signed Impressions: Service Date/Time: Thursday, February 22, 2018 06:46 - CONCLUSION: 1. Cerebral atrophy. 2. No acute intracranial abnormality Miguel A Rosen MD Chest X-Ray 02/22/18 0000 Signed Impressions: Service Date/Time: Thursday, February 22, 2018 06:59 - CONCLUSION: 1. No acute findings. Minimal basal atelectasis. Ti Kumar MD Brain MRI 02/22/18 0000 Signed Impressions: Service Date/Time: Thursday, February 22, 2018 08:03 - CONCLUSION: 1. Bilateral cortical atrophy and chronic white matter changes characteristic for patient's age. 2. No acute pathology. Bobby Hawley MD Caprini VTE Risk Assessment Caprini VTE Risk Assessment: Mod/High Risk (score >= 2) Caprini Risk Assessment Model Point Value = 1 Point Value = 2 Point Value = 3 Point Value = 5 Age 41-60 Minor surgery BMI > 25 kg/m2 Swollen legs Varicose veins or History of unexplained or recurrent spontaneous Oral contraceptives or hormone replacement Sepsis (< 1 month) Serious lung disease, including pneumonia (< 1 month) Abnormal pulmonary function Acute myocardial infarction Congestive heart failure (< 1 month) History of inflammatory bowel disease Medical patient at bed rest Age 61-74 Arthroscopic surgery Major open surgery (> 45 min) Laparoscopic surgery (> 45 min) Malignancy Confined to bed (> 72 hours) Immobilizing plaster cast Central venous access Age >= 75 History of VTE Family history of VTE Factor V Leiden Prothrombin [id number] Lupus anticoagulant Anticardiolipin antibodies Elevated serum homocysteine Heparin-induced thrombocytopenia Other congenital or acquired thrombophilia Stroke (< 1 month) Elective arthroplasty Hip, pelvis, or leg fracture Acute spinal cord injury (< 1 month) Prophylaxis Regimen Total Risk Factor Score Risk Level Prophylaxis Regimen 0-1 Low Early ambulation 2 Moderate Order ONE of the following: *Sequential Compression Device (SCD) *Heparin 5000 units SQ BID 3-4 Higher Order ONE of the following medications: *Heparin 5000 units SQ TID *Enoxaparin/Lovenox 40 mg SQ daily (WT < 150 kg, CrCl > 30 mL/min) *Enoxaparin/Lovenox 30 mg SQ daily (WT < 150 kg, CrCl > 10-29 mL/min) *Enoxaparin/Lovenox 30 mg SQ BID (WT < 150 kg, CrCl > 30 mL/min) AND/OR *Sequential Compression Device (SCD) 5 or more Highest Order ONE of the following medications: *Heparin 5000 units SQ TID (Preferred with Epidurals) *Enoxaparin/Lovenox 40 mg SQ daily (WT < 150 kg, CrCl > 30 mL/min) *Enoxaparin/Lovenox 30 mg SQ daily (WT < 150 kg, CrCl > 10-29 mL/min) *Enoxaparin/Lovenox 30 mg SQ BID (WT < 150 kg, CrCl > 30 mL/min) AND *Sequential Compression Device (SCD) Assessment and Plan Problem List: (1) Generalized weakness ICD Codes: R53.1 - Weakness Plan: Generalized weakness and confusion This is an 87-year-old male with a past medical history which includes: carotid occlusion with carotid arterial surgery, history of hyperlipidemia, hypertension , arthritis, depression. Patient initially presented to the ER with confusion and some expressive aphasia. Time of onset was really unclear. He was seen in the ER 02/19/18 dx with a UTI, started on Bactrim. Urine culture grew Proteus. The patient did not receive TPA because we did not really know the time of onset , since this was waxing and waning for unclear length of time. There was some report of generalized weakness, some confusion this morning upon awakening, trouble answering questions noted by the EVAC. Apparently, en route his mentation improved. He has a droopy left eye. He tells me that is chronic. He is blind in that eye. could be related to UTI and worsening dementia - CT head reviewed revealed: Cerebral atrophy. No acute intracranial abnormality - MRI reviewed and revealed: Bilateral cortical atrophy and chronic white matter changes characteristic for patient's age. No acute pathology - MRA head- No filling defect to suggest embolus or thrombus. Scattered atherosclerotic disease - MRA neck- Mild narrowing at the origin of the right internal carotid artery. Otherwise, no focal high grade or significant stenosis is demonstrated - Lipid profile, thyroid panel, Hemoglobin a1c, - EEG, echocardiogram pending - consult Neurology, appreciate input - PT requested (2) Confusion ICD Codes: R41.0 - Disorientation, unspecified Plan: see above (3) HTN (hypertension) ICD Codes: I10 - HTN (hypertension) Status: Acute Plan: Continue home Lisinopril 10 mg PO daily monitor BP (4) Hyperlipidemia ICD Codes: E78.5 - Hyperlipidemia Status: Acute Plan: Lipid profile in AM (5) UTI (urinary tract infection) ICD Codes: N39.0 - UTI (urinary tract infection) Status: Acute Plan: ER 02/19/18 dx with a UTI, started on Bactrim. Urine culture grew Proteus patient on Rocephin Assessment and Plan Patient examined. Assessment and plan formulated with Grisel Reynolds PA-C. I agree with the above. Grisel Reynolds Feb 22, 2018 09:36 Osman Hernadez DO Feb 28, 2018 13:34
[2018-02-22] MEDS ORDERED: cloNIDine HCL 0.2 MG TAB PO PRN (09:45)
[2018-02-22] MEDS ORDERED: TRIA37.53 PO (10:30)
[2018-02-22] MEDS: SERTRALINE HCL 50 MG TAB PO SCH (11:02)
--- NOTE | 2018-02-22 11:26 | MB ---
cc: Alba Hathaway MD DATE: 02/22/2018 REASON FOR CONSULTATION: TIA. HISTORY OF PRESENT ILLNESS: This is an 87-year-old man with history of carotid occlusion and carotid surgery, hyperlipidemia, hypertension, arthritis, depression, presents with confusion and some expressive aphasia. Time of onset was really unclear. He was seen apparently a couple days ago with a UTI, on Bactrim, grew Proteus. The patient did not receive TPA because we did not really know the time of onset, since this was waxing and waning for unclear length of time. There was some report of generalized weakness, some confusion this morning upon awakening, trouble answering questions noted by the EVAC. Apparently, en route his mentation improved. He has a droopy left eye. He tells me that is chronic. He is blind in that eye. He is not on any blood thinners. PAST MEDICAL HISTORY: Carotid occlusion with carotid surgery, hyperlipidemia, hypertension, arthritis, depression, cardiac catheterization and stent. FAMILY HISTORY: [place] in the father at age 80. SOCIAL HISTORY: Lives with his . No alcohol, tobacco, or drugs. ALLERGIES: SIMVASTATIN. PHYSICAL EXAMINATION: VITAL SIGNS: Temperature is 98.8, pulse 68, respiratory rate 18, blood pressure 138/62. NECK: Supple with no appreciable bruits. HEART: Regular. NEUROLOGIC: He is awake and alert. He is slow to respond. He does keep his left eye closed. His pupils; however, are reactive. He states he cannot see from the left eye. Again, he states is chronic. He has not slurred. He is very slow to respond. He has word finding difficulty, some expressive issues. Follows commands, otherwise. Lifts both arms antigravity. Lifts his legs as well. DTRs are 1 to 2+. Toes he withdraws. Cerebellar intact. Gait is withheld. LABORATORY STUDIES: His white count is 9, hemoglobin 12, platelets 178,000. Coag panel, fibrinogen 582. His chemistry, BUN 37, creatinine 2.1. Tox screen was negative. Urine still shows large leukocyte esterase, 41 white cells. Microbiology cultures are still pending. IMAGING: MRI brain shows atrophy, white matter changes, but no acute findings. MRA of the [place] does not show any embolic finding, some scattered atherosclerotic disease. Carotids show mild narrowing at the origin of the right internal. Otherwise, no focal high-grade stenosis. There is also tortuosity of all 3 arch vessels. IMPRESSION: An 87-year-old man with confusion, waxing and waning, possible, expressive aphasia. RECOMMENDATIONS: At this point in time are to continue to monitor his blood pressure. Try to normalize his BP. Treat him for UTI accordingly. Place him on some aspirin therapy. Check lipid panel, thyroid panel, hemoglobin A1c. Also, consider getting an EEG, 2D echo and physical therapy, occupational and speech therapy. Alba Hathaway MD DF/TL , 11:01 AM , 11:25 AM
--- NOTE | 2018-02-22 17:43 | MG ---
cc: Charan Moore MD, PhD DATE OF STUDY: 02/22/2018 TEST NUMBER: [id number] TECHNIQUE: A 17-channel EEG. DESCRIPTION: The background rhythm reveals a symmetrical alpha rhythm with a frequency of 8-9 Hz, amplitude is 20-30 microvolts. There is the expected anterior decrement to the response. There is occasional muscle artifact present. During drowsiness, there is some slowing in the theta range at roughly 6 Hz with the same amplitude. There were no lateralizing features seen. There are no epileptiform discharges. Photic stimulation was performed in a stepwise fashion with a normal driving response. Hyperventilation was not done. INTERPRETATION: This is a normal electroencephalogram. Charan Moore MD, PhD SAMAN/IVONNE , 05:15 PM , 05:42 PM
[2018-02-22] MEDS: SODIUM CHLORIDE 0.9% FLUSH 10 ML FLUSH IV FLUSH SCH (21:00)
--- NOTE | 2018-02-22 22:12 | EKG ---
Date Performed: 02/22/2018 Time Performed: 06:14:30 PTAGE: 87 years EKG: SINUS BRADYCARDIA WITH FIRST DEGREE AV BLOCK RIGHT AXIS INFERIOR MYOCARDIAL INFARCTION ABNO RMAL ECG Since the PREVIOUS TRACING , no significant change noted DOCTOR: Tasha Alvarez Interpretating Date/Time 02/22/2018 22:12:42
[2018-02-23] VITALS (7 sets, daily range): BP systolic 110–145; BP diastolic 54–82; PULSE 53–64; RESP 17–18; TEMP 97.7–98.3; O2SAT 94–98
[2018-02-23 07:13] LABS: AUTOMATED NEUTROPHIL # 3.9 TH/MM3 (1.8-7.7); BASOPHIL % 0.6 % (0.0-2.0); EOSINOPHIL # 0.5 TH/MM3 (0-0.4); EOSINOPHIL % 9.1 % (0.0-4.0); HEMATOCRIT 33.9 % (39.0-51.0); HEMOGLOBIN 11.6 GM/DL (13.0-17.0); LYMPHOCYTE # 0.9 TH/MM3 (1.0-4.8); MEAN CORPUSCULAR HEMOGLOBIN 30.4 PG (27.0-34.0); MEAN CORPUSCULAR HGB CONC 34.2 % (32.0-36.0); MEAN PLATELET VOLUME 8.1 FL (7.0-11.0); MONO % 7.5 % (0.0-8.0); MONOCYTE # 0.4 TH/MM3 (0-0.9); NEUT % 67.8 % (16.0-70.0); PLATELET COUNT 179 TH/MM3 (150-450); RED CELL DISTRIBUTION WIDTH 13.2 % (11.6-17.2); WHITE BLOOD COUNT 5.7 TH/MM3 (4.0-11.0)
[2018-02-23 07:50] LABS: BICARBONATE 21.3 MEQ/L (21.0-32.0); BLOOD UREA NITROGEN 29 MG/DL (7-18); CALCIUM 9.6 MG/DL (8.5-10.1); CHLORIDE 110 MEQ/L (98-107); GLOMERULAR FILTRATION RATE 41 ML/MIN (>89); GLUCOSE,RANDOM 84 MG/DL (74-106); SODIUM (NA) 140 MEQ/L (136-145)
[2018-02-23 07:52] LABS: CHOLESTEROL 134 MG/DL (120-200)
[2018-02-23] MEDS ORDERED: cefTRIAXone INJ 1,000 MG in SODIUM CHLORIDE 0.9% INJ 100 ML IV SCH (08:00)
[2018-02-23 08:01] LABS: CHOLESTEROL/ HDL RATIO 3.05 RATIO; HDL CHOLESTEROL 43.8 MG/DL (40.0-60.0); LDL CHOLESTEROL 75 MG/DL (0-99); TRIGLYCERIDES 77 MG/DL (42-150)
[2018-02-23] MEDS: SODIUM CHLORIDE 0.9% FLUSH 10 ML FLUSH IV FLUSH SCH (08:19)
[2018-02-23] MEDS: SERTRALINE HCL 50 MG TAB PO SCH (08:19)
[2018-02-23] MEDS ORDERED: LISINOPRIL 10 MG TAB PO SCH (09:00)
[2018-02-23] MEDS ORDERED: BACT800T5 PO (12:05)
--- NOTE | 2018-02-23 12:08 | HHI.DCPOC ---
Discharge Care Plan Diagnosis: (1) Generalized weakness (2) Confusion (3) UTI (urinary tract infection) Goals to Promote Your Health * To prevent worsening of your condition and complications * To maintain your health at the optimal level Directions to Meet Your Goals Take your medications as prescribed Follow your dietary instruction Follow activity as directed Keep your appointments as scheduled Take your immunizations and boosters as scheduled If your symptoms worsen call your PCP, if no PCP go to Urgent Care Center or Emergency Room Smoking is Dangerous to Your Health. Avoid second hand smoke Call the 24-hour hour crisis hotline for domestic abuse at Grisel Reynolds Feb 23, 2018 12:08 Osman Hernadez DO Feb 28, 2018 13:34
--- NOTE | 2018-02-23 12:08 | HHI.FF ---
Face to Face Verification Diagnosis: (1) Altered mental status (2) Generalized weakness (3) Confusion (4) UTI (urinary tract infection) Physical Therapy Order: Evaluate and Treat Occupational Therapy Order: Evaluate and Treat Speech Therapy Order: To Improve: Speech and communication skills Home Health Nursing Order: Medical education Signs/symptoms of disease process Medication education-adverse effect I have seen patient Mihai Willams on 02/23/18. My clinical findings support the need for the requested home health care services because: Deconditioned w/ increased weakness Med compliance is questionable Limited ability to care for self I certify that my clinical findings support that this patient is homebound because: Impaired cognitive ability/safety Grisel Reynolds Feb 23, 2018 12:08
--- NOTE | 2018-02-23 12:23 | HHI.PR ---
Subjective Remarks Patient's continues to be A&O to person only - per patient has dementia and his has been progressively more confused for months Objective Vitals Vital Signs Date Time Temp Pulse Resp B/P (MAP) Pulse Ox O2 Delivery O2 Flow Rate FiO2 02/23/18 11:50 98.1 60 17 112/54 (73) 97 02/23/18 09:01 98.3 64 17 145/65 (91) 94 02/23/18 09:00 94 21 02/23/18 08:00 56 02/23/18 04:00 58 02/23/18 04:00 97.7 54 18 118/60 (79) 97 02/23/18 00:00 55 02/23/18 00:00 98.0 62 18 110/82 (91) 98 02/22/18 20:00 97.8 50 18 112/56 (74) 96 02/22/18 20:00 62 02/22/18 15:57 98.4 57 20 114/57 (76) 96 02/22/18 14:50 02/22/18 14:30 68 19 114/56 (75) 97 Room Air 02/23/18 02/23/18 02/24/18 15:00 23:00 07:00 # Voids 3 # Bowel Movements 1 Result Diagram: 02/23/18 0640 02/23/18 0650 Other Results Laboratory Tests Test 02/22/18 06:40 02/22/18 07:20 02/22/18 07:30 02/23/18 06:40 White Blood Count 9.0 TH/MM3 5.7 TH/MM3 Red Blood Count 3.95 MIL/MM3 3.80 MIL/MM3 Hemoglobin 12.0 GM/DL 11.6 GM/DL Bedside Hemoglobin 10.9 G/DL Hematocrit 35.7 % 33.9 % Bedside Hematocrit 32.0 % Mean Corpuscular Volume 90.4 FL 89.0 FL Mean Corpuscular Hemoglobin 30.4 PG 30.4 PG Mean Corpuscular Hemoglobin Concent 33.6 % 34.2 % Red Cell Distribution Width 13.2 % 13.2 % Platelet Count 178 TH/MM3 179 TH/MM3 Mean Platelet Volume 9.4 FL 8.1 FL Neutrophils (%) (Auto) 75.9 % 67.8 % Lymphocytes (%) (Auto) 11.9 % 15.0 % Monocytes (%) (Auto) 7.1 % 7.5 % Eosinophils (%) (Auto) 4.6 % 9.1 % Basophils (%) (Auto) 0.5 % 0.6 % Neutrophils # (Auto) 6.8 TH/MM3 3.9 TH/MM3 Lymphocytes # (Auto) 1.1 TH/MM3 0.9 TH/MM3 Monocytes # (Auto) 0.6 TH/MM3 0.4 TH/MM3 Eosinophils # (Auto) 0.4 TH/MM3 0.5 TH/MM3 Basophils # (Auto) 0.0 TH/MM3 0.0 TH/MM3 CBC Comment DIFF FINAL DIFF FINAL Differential Comment Bedside Sodium 137 MMOL/L Bedside Potassium 4.0 MMOL/L Bedside Chloride 107 MMOL/L Bedside Blood Urea Nitrogen 37 MG/DL Bedside Creatinine 2.1 MG/DL Bedside Glucose 87 MG/DL Total Creatine Kinase 82 U/L Troponin I LESS THAN 0.02 NG/ML Prothrombin Time 9.8 SEC Prothromb Time International Ratio 1.0 RATIO Activated Partial Thromboplast Time 25.2 SEC Fibrinogen 582 mg/dL Urine Color LIGHT-YELLOW Urine Turbidity CLEAR Urine pH 6.0 Urine Specific [place] 1.014 Urine Protein TRACE mg/dL Urine Glucose (UA) NEG mg/dL Urine Ketones NEG mg/dL Urine Occult Blood TRACE Urine Nitrite NEG Urine Bilirubin NEG Urine Urobilinogen LESS THAN 2.0 MG/DL Urine Leukocyte Esterase LARGE Urine RBC 4 /hpf Urine WBC 41 /hpf Urine Bacteria RARE /hpf Urine Hyaline Casts 1 /lpf Urine Mucus FEW /lpf Urine Opiates Screen NEG Urine Barbiturates Screen NEG Urine Amphetamines Screen NEG Urine Benzodiazepines Screen NEG Urine Cocaine Screen NEG Urine Cannabinoids Screen NEG Test 02/23/18 06:50 Blood Urea Nitrogen 29 MG/DL Creatinine 1.60 MG/DL Random Glucose 84 MG/DL Calcium Level 9.6 MG/DL Sodium Level 140 MEQ/L Potassium Level 3.7 MEQ/L Chloride Level 110 MEQ/L Carbon Dioxide Level 21.3 MEQ/L Anion Gap 9 MEQ/L Estimat Glomerular Filtration Rate 41 ML/MIN Triglycerides Level 77 MG/DL Cholesterol Level 134 MG/DL LDL Cholesterol 75 MG/DL HDL Cholesterol 43.8 MG/DL Cholesterol/HDL Ratio 3.05 RATIO Thyroid Stimulating Hormone 3rd Gen 1.920 uIU/ML Imaging Last Impressions Neck Magnetic Resonance Angiography 02/22/18 0000 Signed Impressions: Service Date/Time: Thursday, February 22, 2018 08:03 - CONCLUSION: 1. Mild narrowing at the origin of the right internal carotid artery. 2. Otherwise, no focal high-grade or significant stenosis is demonstrated. 3. There is tortuosity of all 3 arch vessels. Bobby Hawley MD Head Magnetic Resonance Angiography 02/22/18 0000 Signed Impressions: Service Date/Time: Thursday, February 22, 2018 08:03 - CONCLUSION: No filling defect to suggest embolus or thrombus. Scattered atherosclerotic disease as detailed above. Rodriguez Lewis Jr., MD Head CT 02/22/18 0000 Signed Impressions: Service Date/Time: Thursday, February 22, 2018 06:46 - CONCLUSION: 1. Cerebral atrophy. 2. No acute intracranial abnormality Miguel A Rosen MD Chest X-Ray 02/22/18 0000 Signed Impressions: Service Date/Time: Thursday, February 22, 2018 06:59 - CONCLUSION: 1. No acute findings. Minimal basal atelectasis. Ti Kumar MD Brain MRI 02/22/18 0000 Signed Impressions: Service Date/Time: Thursday, February 22, 2018 08:03 - CONCLUSION: 1. Bilateral cortical atrophy and chronic white matter changes characteristic for patient's age. 2. No acute pathology. Bobby Hawley MD Objective Remarks GENERAL: This is a confused elderly 87 year old male, in no apparent distress. CARDIOVASCULAR: Regular rate and rhythm RESPIRATORY: Clear to auscultation. Breath sounds equal bilaterally. GASTROINTESTINAL: Abdomen soft, non-tender, nondistended. Normal active bowel sounds MUSCULOSKELETAL: Extremities without clubbing, cyanosis, or edema. NEURO: Oriented to person only. Moves all ext x4 A/P Problem List: (1) Generalized weakness ICD Codes: R53.1 - Weakness Plan: Generalized weakness and confusion This is an 87-year-old male with a past medical history which includes: carotid occlusion with carotid arterial surgery, history of hyperlipidemia, hypertension , arthritis, depression. Patient initially presented to the ER with confusion and some expressive aphasia. Time of onset was really unclear. He was seen in the ER 02/19/18 dx with a UTI, started on Bactrim. Urine culture grew Proteus. The patient did not receive TPA because we did not really know the time of onset , since this was waxing and waning for unclear length of time. There was some report of generalized weakness, some confusion this morning upon awakening, trouble answering questions noted by the EVAC. Apparently, en route his mentation improved. He has a droopy left eye. He tells me that is chronic. He is blind in that eye. could be related to UTI and worsening dementia - CT head reviewed revealed: Cerebral atrophy. No acute intracranial abnormality - MRI reviewed and revealed: Bilateral cortical atrophy and chronic white matter changes characteristic for patient's age. No acute pathology - MRA head- No filling defect to suggest embolus or thrombus. Scattered atherosclerotic disease - MRA neck- Mild narrowing at the origin of the right internal carotid artery. Otherwise, no focal high grade or significant stenosis is demonstrated - Lipid profile reviewed LDL 75, TSH 1.920, Hemoglobin a1c pending - EEG read as a normal exam - Echo completed report pending. Patient can follow up with PCP for results - consult Neurology, appreciate input - PT recommending rehab. (02/22) Patient's refusing SNF/rehab request PT at [facility]. Today patient's agrees to SNF for short term rehab DC patient to SNF in stable condition on a regular diet as tolerated. Patient to follow up with PCP and complete Bactrim coarse. Patient's home Triamterene/ HCTZ DC temporarily as patient appeared dehydrated and with decreased poor PO intake (2) Confusion ICD Codes: R41.0 - Disorientation, unspecified Plan: see above (3) HTN (hypertension) ICD Codes: I10 - HTN (hypertension) Status: Acute Plan: Continue home Lisinopril 10 mg PO daily monitor BP (4) Hyperlipidemia ICD Codes: E78.5 - Hyperlipidemia Status: Acute Plan: Lipid reviewed LDL 75 (5) UTI (urinary tract infection) ICD Codes: N39.0 - UTI (urinary tract infection) Status: Acute Plan: ER 02/19/18 dx with a UTI, started on Bactrim. Urine culture grew Proteus sensitive to Bactrim patient given 2days of Rocephin continue course of Bactrim outpatient Assessment and Plan Patient examined. Assessment and plan formulated with Grisel Reynolds PA-C. I agree with the above. Grisel Reynolds Feb 23, 2018 12:23 Osman Hernadez DO Feb 28, 2018 13:33
--- NOTE | 2018-02-23 14:16 | ECHRPT ---
Indication: CVA/TIA CONCLUSIONS Normal left ventricular size. Mild concentric left ventricular hypertrophy. The left ventricular systolic function is normal with an estimated ejection fraction in the range of 60-65%. Normal wall motion. The left atrial size is mildly dilated. Moderate aortic leaflet thickening and calcification. Moderate aortic valve stenosis. Aortic valve mean gradient is 37 mmHg. There is trace tricuspid and trace mitral valve regurgitation. BP: 118 / 60 HR: 58 Rhythm: Sinus MEASUREMENTS (Male / Female) Normal Values Technical Quality:Fair 2D ECHO LV Diastolic Diameter PLAX 4.2 cm 4.2 - 5.9 / 3.9 - 5.3 cm LV Systolic Diameter PLAX 2.9 cm IVS Diastolic Thickness 1.3 cm 0.6 - 1.0 / 0.6 - 0.9 cm LVPW Diastolic Thickness 1.3 cm 0.6 - 1.0 / 0.6 - 0.9 cm LV Relative Wall Thickness 0.6 RV Internal Dim ED PLAX 2.6 cm LVOT Diameter 2.0 cm Aortic Root Diameter 3.4 cm LA Systolic Diameter LX 3.4 cm 3.0 - 4.0 / 2.7 - 3.8 cm DOPPLER AV Peak Velocity 414.0 cm/s AV Peak Gradient 68.6 mmHg AV Mean Gradient 37.0 mmHg AV Velocity Time Integral 100.0 cm LVOT Peak Velocity 80.5 cm/s LVOT Peak Gradient 2.6 mmHg LVOT Velocity Time Integral 17.9 cm AV Area Cont Eq vti 0.6 cm AV Area Cont Eq pk 0.6 cm Mitral E Point Velocity 103.0 cm/s Mitral A Point Velocity 116.0 cm/s Mitral E to A Ratio 0.9 LV E' Lateral Velocity 8.8 cm/s Mitral E to LV E' Lateral Ratio 11.7 LV E' Septal Velocity 6.2 cm/s Mitral E to LV E' Septal Ratio 16.5 TR Peak Velocity 281.0 cm/s TR Peak Gradient 31.6 mmHg Right Atrial Pressure 10.0 mmHg Pulmonary Artery Systolic Pressu 41.6 mmHg Right Ventricular Systolic Press 41.6 mmHg PV Peak Velocity 63.2 cm/s PV Peak Gradient 1.6 mmHg FINDINGS LEFT VENTRICLE Normal left ventricular size. Mild concentric left ventricular hypertrophy. The left ventricular systolic function is normal with an estimated ejection fraction in the range of 60-65%. Normal wall motion. RIGHT VENTRICLE Normal right ventricular size and systolic function. LEFT ATRIUM The left atrial size is mildly dilated. RIGHT ATRIUM The right atrial size is normal. ATRIAL SEPTUM No atrial level shunt is demonstrated by color flow Doppler interrogation. AORTA The aortic root and proximal ascending aorta are not well visualized. MITRAL VALVE Trace mitral valve regurgitation. AORTIC VALVE Moderate aortic leaflet thickening and calcification. Moderate aortic valve stenosis. Aortic valve mean gradient is 37 mmHg. TRICUSPID VALVE There is trace tricuspid valve regurgitation. PULMONARY VALVE Trivial pulmonary valve regurgitation. VESSELS The inferior vena cava is normal in size. PERICARDIUM No pericardial effusion. Drew Jacome MD (Electronically Signed) Final Date:23 February 2018 14:15
[2018-02-23] MEDS ORDERED: LORA0.5T PO (14:28)
[2018-02-23 15:42] LABS: HEMOGLOBIN A1C 5.6 % (4.3-6.0)
[2018-02-24] MEDS ORDERED: INFLUENZA VIRUS VACCINE (QUADRIVALENT) 0.5 ML SYR IM ONE (10:00)
== END 2018-02-23 16:25 ==
LOC: NEPC 06:04 → NEDA 09:21 → N05A 15:18
PROVIDERS: ADMIT Hospitalist; ATTEND Hospitalist
DX: N39.0 Urinary tract infection, site not specified (principal); R53.1 Weakness; R41.0 Disorientation, unspecified; E86.0 Dehydration; R47.01 Aphasia; I44.0 Atrioventricular block, first degree; R00.1 Bradycardia, unspecified; R94.31 Abnormal electrocardiogram [ECG] [EKG]; I10 Essential (primary) hypertension; E78.5 Hyperlipidemia, unspecified; N28.9 Disorder of kidney and ureter, unspecified; H54.40 Blindness, one eye, unspecified eye; F03.90 Unspecified dementia, unspecified severity, without behavioral disturbance, psychotic disturbance, mood disturbance, and anxiety; F32.9 Major depressive disorder, single episode, unspecified; M19.90 Unspecified osteoarthritis, unspecified site; Z79.899 Other long term (current) drug therapy; Z82.49 Family history of ischemic heart disease and other diseases of the circulatory system
CPT/HCPCS: 70450; 70544; 70548; 70551; 71045; 80048; 80061; 80307; 81001; 82550; 83036; 84443; 84484; 85025; 85384; 85610; 85730; 86850; 86900; 86901; 87040; 87086; 93005; 93306; 95819; 96361; 96365; 96376; 97163; 99291; A9579; G0378; G8987; G8988; J0696; J7030; P9612